=== PATIENT | female | born 1965 | race Caucasian/White ===

== ENCOUNTER 2016-07-30 20:16 | Emergency (ER) | payer OTHER ==
[~2016-07-30 20:16] MED LIST: ANTIVERT PO; BACTRIM DS TABL1 TAB PO; CIPRO PO; CLEOCIN150 M1 PO; DAKIN'S MODIF1000 ML EXT; DIAZEPAM PO; FLEXERIL PO; FLEXERIL10 M1 PO; FLUOXETINE HCL20 M1 PO; IBUPROFEN800 MG PO; LEVOCETIRIZINE D5 MG PO; LORTAB 5-325 M1 EACH PO; MOBIC PO; NAPROXEN PO; NO MEDICATIONS; PERCOCET 7.5-31 EACH PO; PHENERGAN25 M1 PO; PROMETHAZINE V118 M1 PO; PROZAC40 MG PO; SKELAXIN PO; TYLENOL #3 PO; ULTRAM PO; VIBRAMYCIN100 M1 PO; VITAMIN D5000 UNIT PO; VITAMIN D50000 UNIT PO; VOLTAREN75 MG PO; XYZAL5 MG PO
== END 2016-07-30 20:17 | disposition left against medical advice (07) ==
LOC: CED 20:16
DX: Z53.21 Procedure and treatment not carried out due to patient leaving prior to being seen by health care provider (principal)